=== PATIENT | female | born 1960 | race Caucasian/White ===

== ENCOUNTER 2023-03-29 01:25 | Emergency (ER) | payer MEDICAID ==
[~2023-03-29] VITALS: Ht 160 cm; Wt 68.2 kg
[~2023-03-29 01:25] MED LIST: DIPH25CA83 PO; LACTC PO
[2023-03-29] MEDS ORDERED: ondansetron 4mg rapidly disintigrating tab PO ONE (01:50)
[2023-03-29] MEDS ORDERED: acetaminophen 325mg tablet PO ONE (02:00)
[2023-03-29 03:23] VITALS: BP 117/85
== END 2023-03-29 03:25 | disposition home or self-care (01) ==
LOC: ER 01:26
DX: S00.01XA Abrasion of scalp, initial encounter (principal); Z88.1 Allergy status to other antibiotic agents; Z88.2 Allergy status to sulfonamides; Z91.09 Other allergy status, other than to drugs and biological substances; W06.XXXA Fall from bed, initial encounter; Y93.89 Activity, other specified; Y92.89 Other specified places as the place of occurrence of the external cause; Y99.8 Other external cause status
CPT/HCPCS: 70450; 72125; 99284

== ENCOUNTER 2023-09-07 17:19 | Emergency (ER) | payer MEDICAID ==
[~2023-09-07] VITALS: Ht 160 cm; Wt 68.2 kg
[2023-09-07 17:42] VITALS: TEMP 97.7
[2023-09-07 20:05] VITALS: BP 155/77; PULSE 89; RESP 12; O2SAT 97
--- NOTE | 2023-09-07 20:55 | NUR ---
NOT IN LOBY CALL #2
--- NOTE | 2023-09-07 21:08 | NUR ---
NOT IN LOBBY CALL #3
== END 2023-09-07 21:28 | disposition left against medical advice (07) ==
LOC: ER 17:20
DX: M25.571 Pain in right ankle and joints of right foot (principal); Z53.21 Procedure and treatment not carried out due to patient leaving prior to being seen by health care provider
CPT/HCPCS: 99281

== ENCOUNTER 2023-09-28 06:03 | Emergency (ER) | payer MEDICAID ==
[~2023-09-28] VITALS: Ht 160 cm; Wt 72.2 kg
[2023-09-28 06:06] VITALS: BP 137/71; PULSE 94; TEMP 98.6; O2SAT 100
[2023-09-28 06:52] VITALS: RESP 16
[2023-09-28] MEDS ORDERED: sulfamethoxazole/trimethoprim DS (800/160mg) tablet PO ONE (08:25)
[2023-09-28] MEDS ORDERED: ibuprofen 200mg tablet PO ONE (08:25)
[2023-09-28] MEDS ORDERED: clindamycin 150mg capsule PO ONE (08:25)
[2023-09-28] MEDS ORDERED: SULF1TAB49 PO (09:06)
[2023-09-28] MEDS ORDERED: IBUP-1984 PO (09:06)
[2023-09-28] MEDS ORDERED: CLIN300C3 PO (09:06)
--- NOTE | 2023-09-28 09:29 | NUR ---
oral meds given per dr amanda floating [id number]
== END 2023-09-28 09:30 | disposition home or self-care (01) ==
LOC: ER 06:04
DX: L03.115 Cellulitis of right lower limb (principal); Z88.1 Allergy status to other antibiotic agents; Z91.09 Other allergy status, other than to drugs and biological substances; Z79.2 Long term (current) use of antibiotics; Z79.1 Long term (current) use of non-steroidal anti-inflammatories (NSAID); Z79.899 Other long term (current) drug therapy
CPT/HCPCS: 73610; 99284

== ENCOUNTER 2024-01-08 15:59 | Emergency (ER) | payer MEDICAID ==
[~2024-01-08] VITALS: Ht 160 cm; Wt 69.0 kg
[2024-01-08 16:09] VITALS: BP 113/66; PULSE 89; RESP 16; TEMP 98.6; O2SAT 98
== END 2024-01-08 18:54 | disposition left against medical advice (07) ==
LOC: ER 16:00
DX: M79.672 Pain in left foot (principal); Z53.21 Procedure and treatment not carried out due to patient leaving prior to being seen by health care provider
CPT/HCPCS: 99281

== ENCOUNTER 2025-04-02 18:02 | Emergency (ER) | payer MEDICARE, MEDICAID ==
[~2025-04-02] VITALS: Ht 160 cm; Wt 63.2 kg
[2025-04-02 18:07] VITALS: BP 134/80; PULSE 100; RESP 18; TEMP 97.9; O2SAT 99
[2025-04-02 18:41] LABS: BASOPHILS % (AUTO) 0.8 % (0-1); EOSINOPHILS # (AUTO) 0.1 X10'3 (0-0.9); EOSINOPHILS % (AUTO) 1.1 % (0-6); HEMOGLOBIN 11.9 g/dl (12.0-16.0); LYMPHOCYTES # (AUTO) 1.8 X10'3 (1.1-4.8); LYMPHOCYTES % (AUTO) 30.1 % (21-51); MEAN CORPUSCULAR HEMOGLOBIN 31.6 PG (27.0-31.0); MEAN CORPUSCULAR HGB CONC 33.9 g/dL (33.0-36.5); MEAN PLATELET VOLUME 7.7 FL (7.4-10.4); MONOCYTES # (AUTO) 0.7 X10'3 (0-0.9); MONOCYTES % (AUTO) 11.4 % (2-12); NEUTROPHILS # (AUTO) 3.4 X10'3 (1.8-7.7); NEUTROPHILS % (AUTO) 56.6 % (42-75); PLATELET COUNT 275 X10'3 (140-440); RED BLOOD COUNT 3.76 X10'6 (4.20-5.60); RED CELL DISTRIBUTION WIDTH 14.2 % (11.5-14.5)
[2025-04-02 19:35] LABS: ALBUMIN 3.9 G/DL (3.4-5.0); ANION GAP 7 (8-16); BLOOD UREA NITROGEN 25 MG/DL (7-18); BUN/CREATININE RATIO 18.5 (10.0-20.0); CALCIUM 9.2 MG/DL (8.5-10.1); CHLORIDE 104 MMOL/L (99-107); CREATININE 1.35 MG/DL (0.40-0.90); GLUCOSE 127 MG/DL (70-104); POTASSIUM 4.4 MMOL/L (3.5-5.1); SODIUM 138 MMOL/L (135-145); TOTAL CARBON DIOXIDE 27.3 MMOL/L (24-32); eCRCL 34 ML/MIN; eGFR 39 ML/MIN
[2025-04-03] MEDS ORDERED: SULF1TAB45 PO (02:56)
== END 2025-04-03 01:00 | disposition left against medical advice (07) ==
LOC: ER 18:03
DX: R60.0 Localized edema (principal); Z88.8 Allergy status to other drugs, medicaments and biological substances; Z53.21 Procedure and treatment not carried out due to patient leaving prior to being seen by health care provider
CPT/HCPCS: 36415; 80048; 84145; 85025

== ENCOUNTER 2025-04-03 01:17 | Emergency (ER) | payer MEDICARE, MEDICAID ==
[~2025-04-03] VITALS: Ht 157.5 cm; Wt 56.9 kg
--- NOTE | 2025-04-03 02:27 | Physician Documentation ---
History of Present Illness ~ Chief Complaint: Leg Pain Stated Complaint: LEG SWELLING Time Seen by MD: 02:00 Primary Medical Doctor: [facility] 64 year old female is over one month s/p varicose vein surgery of LLE and has experienced continued LLE swelling and pain after the procedure. She denies fevers, N/V/D. Tetanus witin 5 years: No Medication Reconciliation Allergies: Coded Allergies: Bacitracin Zinc (Verified Allergy, Unknown, 09/07/23) Soap (Verified Allergy, Unknown, 09/07/23) gramicidin D (Verified Allergy, Unknown, 09/07/23) neomycin sulfate (Verified Allergy, Unknown, 09/07/23) polymyxin B sulfate (Verified Allergy, Unknown, 09/07/23) povidone-iodine (Verified Allergy, Unknown, 09/07/23) Scheduled Diphenhydramine Hcl (Benadryl), 2 CAP PO HS Lactobacillus Acidophilus (ACIDOPHILUS capsule), 1 CAP PO BID Past Medical History Past Medical History: Headache, Bronchitis, Pneumonia Past Surgical History: tonsillectomy Patient History: (CAD) Coronary arteriosclerosis MOTHER Alcohol Use: Rarely Drug Use: heroin Lives with: Family Lives In: Home Occupation: employed Review of Systems All Other Systems at this time: Reviewed and Negative Physical Exam Vital Signs: RN Vital Signs have been reviewed: Yes, Temperature: 98.2, Source: Oral, Heart Rate: 85, Respiratory Rate: 16, BP: 141/81, Pulse Oximetry: 100, Weight: 56.900 Oxygen Flow Rate: 0 Physical Exam HEENT: PERRL, moist oral mucosa, EOMI Pulmonary: No respiratory distress MSK: no deformity; LLE with 1+ pitting edema to knee, dusky appearance of skin to [place] Skin: w/d/i, no rash Neuro: alert, nonfocal Psych: normal affect Progress Results/Orders Results/Orders Orders - COSMO STEVEN MD Vl Venous (04/03/25 02:27) Vital Signs 04/03/25 04/03/25 04/03/25 01:23 02:22 02:23 Temp 98.2 98.2 Pulse 90 85 Resp 16 16 16 B/P (MAP) 145/85 141/81 (101) Pulse Ox 98 100 O2 Flow Rate 0 0 Medical Decision Making Findings 64 year old female with cellulitis vs. chronic venous stasis dermatitis vs. DVT LLE. Labs unremarkable, will provide ABx however I have explained that I believe this to be chronic stasis dermatitis. Patient refused US for DVT. Departure Disposition: HOME / SELF CARE / HOMELESS Impression: Primary Impression: Stasis dermatitis of both legs Condition: Stable Discharge Instructions: Stasis Dermatitis Referrals: NO PRIMARY CARE PROVIDER (PCP) Prescriptions Sulfamethoxazole/Trimethoprim (Septra Ds Tab) 800 Mg/160 Mg Tablet 1 TAB PO Q12H for 10 Days, #20 TAB Prov: COSMO STEVEN MD 04/03/25 Education Educated: Patient Educated regarding: diagnosis, treatment, prognosis, need for follow up Signature Scribe Signature: . Attestation: . COSMO STEVEN MD April 03, 2025 02:27
[2025-04-03] MEDS ORDERED: SULF1TAB45 PO (02:56)
[2025-04-03] MEDS: sulfamethoxazole/trimethoprim DS (800/160mg) tablet PO ONE (03:29)
[2025-04-03 03:43] VITALS: BP 128/55; PULSE 66; RESP 12; TEMP 98.2; O2SAT 100
== END 2025-04-03 03:55 | disposition home or self-care (01) ==
LOC: ER 01:18
DX: I87.2 Venous insufficiency (chronic) (peripheral) (principal); I25.10 Atherosclerotic heart disease of native coronary artery without angina pectoris; Z88.8 Allergy status to other drugs, medicaments and biological substances; Z90.89 Acquired absence of other organs; Z91.041 Radiographic dye allergy status
CPT/HCPCS: 99283

== ENCOUNTER 2025-06-06 06:14 | Emergency (ER) | payer MEDICARE, MEDICAID ==
[~2025-06-06] VITALS: Ht 157.5 cm; Wt 64.3 kg
[2025-06-06 06:29] VITALS: BP 131/72; PULSE 85; TEMP 97; O2SAT 98
[2025-06-06] MEDS: morphine 4 MG/ML inj SYRINge IV ONE (07:27)
[2025-06-06] MEDS: ceFAZolin/D5W- 1GM premix 50 ML IV STA (07:27)
--- NOTE | 2025-06-06 07:35 | Physician Documentation ---
History of Present Illness ~ Chief Complaint: Leg Pain Stated Complaint: DERMATITIS Time Seen by MD: 06:57 Primary Medical Doctor: [facility] Source: patient Mode of Arrival: POV Exam Limitations: no limitations HPI Chief Complaint: Left leg pain and ulcer Caveat: None Independent Historians: None History of Present Illness: Patient is a 64-year-old woman who comes in complaining of severe left leg pain that has gotten progressively worse over one week. Currently right now the pain is 6/10 but has been as severe as 9/10. The pain waxes and wanes. Patient has venous stasis and an ulcer over the medial distal left leg. This all began one week ago. Patient had recent surgery on the left lower extremity by Dr. Zelaya at [facility] for her varicose veins one month ago. Patient denies any fever. Review of systems: All systems were reviewed and are negative except for what is indicated in the history of present illness. Past Medical History: Chronic venous stasis Past Surgical History: Noncontributory Social History: Denies tobacco use, denies alcohol or drug use, history of heroin use Medications: Reviewed as documented Nursing Notes Allergies: Reviewed as documented in Nursing Notes Tetanus witin 5 years: No Medication Reconciliation Allergies: Coded Allergies: Bacitracin Zinc (Verified Allergy, Unknown, 06/06/25) Soap (Verified Allergy, Unknown, 06/06/25) gramicidin D (Verified Allergy, Unknown, 06/06/25) neomycin sulfate (Verified Allergy, Unknown, 06/06/25) polymyxin B sulfate (Verified Allergy, Unknown, 06/06/25) povidone-iodine (Verified Allergy, Unknown, 06/06/25) Scheduled Cephalexin*Monohydrate* (Keflex*), 1 CAP PO Q6H Diphenhydramine Hcl (Benadryl), 2 CAP PO HS Lactobacillus Acidophilus (ACIDOPHILUS capsule), 1 CAP PO BID Scheduled PRN Hydrocodone Bit/Acetaminophen (Hydrocodone-Apap 10-325 Tablet), 1 TAB PO TID PRN PRN for pain Past Medical History Past Medical History: Headache, Bronchitis, Pneumonia Past Surgical History: tonsillectomy Patient History: (CAD) Coronary arteriosclerosis MOTHER Alcohol Use: Rarely Drug Use: heroin Lives with: Family Lives In: Home Occupation: employed Review of Systems All Other Systems at this time: Reviewed and Negative ROS Patient denies any other acute symptoms other than above. All other systems are negative Physical Exam Vital Signs: RN Vital Signs have been reviewed: Yes, Temperature: 97.0, Source: Temporal, Heart Rate: 85, BP: 131/72, Pulse Oximetry: 98, Weight: 64.350 Pulse Oximetry Reflects: adequate oxygenation Physical Exam General Appearance: Mild distress HEENT: Normal OP, moist oral mucosa, PERRL, EOMI Neck: supple, normal ROM, trachea midline Pulmonary: No respiratory distress, CTA, BS equal Cardiac: RRR, no murmur, rub or gallop, GI: nondistended, soft, nontender, normal bowel sounds, no guarding, no rebound Extremities: Large superficial venous stasis ulcer over the distal medial left leg that is weeping/wet. Patient has some erythema of the leg proximally. Skin: intact, dry, warm, no rashes, see extremity exam above Neuro: AAOx3, speech is clear, no focal motor weakness Psych: normal affect, good eye contact, no apparent hallucination, normal speech Progress Results/Orders Results/Orders Orders - YAZMIN POPE MD Saline Lock (06/06/25 07:00) Wound Care Orders (06/06/25 07:52) Cult Urine + [address] (06/06/25 07:56) Completed Orders - YAZMIN POPE MD Cbc/Diff (06/06/25 07:00) MG (06/06/25 07:00) Procalcitonin (06/06/25 07:00) Cefazolin/D5w- 1gm Premix (Ancef 1 Gm-D5 (06/06/25 07:00) Morphine 4mg/Ml Inj. (Morphine Inj.) (06/06/25 07:05) Cephalexin Capsule (Keflex Capsule) (06/06/25 07:55) Ua W/Microscopic, Cult If Ind (06/06/25 07:30) Vital Signs 06/06/25 06:29 Temp 97.0 Pulse 85 B/P (MAP) 131/72 Pulse Ox 98 Laboratory Tests Test 06/06/25 07:17 06/06/25 07:30 White Blood Count 6.0 Red Blood Count 3.50 L Hemoglobin 11.1 L Hematocrit 32.2 L Mean Corpuscular Volume 92.2 Mean Corpuscular Hemoglobin 31.6 H Mean Corpuscular Hemoglobin Concent 34.3 Red Cell Distribution Width 14.2 Platelet Count 285 Mean Platelet Volume 7.8 Neutrophils (%) (Auto) 53.6 Lymphocytes (%) (Auto) 31.6 Monocytes (%) (Auto) 13.1 H Eosinophils (%) (Auto) 1.0 Basophils (%) (Auto) 0.7 Neutrophils # (Auto) 3.2 Lymphocytes # (Auto) 1.9 Monocytes # (Auto) 0.8 Eosinophils # (Auto) 0.1 Basophils # (Auto) 0.0 CBC Comment Magnesium Level 2.1 Procalcitonin < 0.05 Urine Specimen Description Cln catch midstream Urine Color Yellow Urine Clarity Clear Urine pH 6.0 Urine Specific [place] 1.020 Urine Protein Negative Urine Glucose (UA) Negative Urine Ketones Negative Urine Occult Blood Moderate H Urine Nitrite Negative Urine Bilirubin Negative Urine Urobilinogen 0.2 Urine Leukocyte Esterase Trace H Urine RBC 10-20 Urine WBC 5-10 H Urine WBC Clumps Few Urine Squamous Epithelial Cells Moderate Urine Bacteria 1+ Urine Hyaline Casts 0-3 Urine Mucus None seen Urine Culture Indicated Indicated Volume Urine Centrifuged 10 ml Urine Comment Microbiology Date/Time Source Procedure Growth Status 06/06/25 07:56 Urine Clean Catch Midstream Urine Culture - Preliminary Culture received. Resulted Medical Decision Making Findings Differential diagnosis includes but is not limited to: Venous stasis, venous stasis ulcer, cellulitis, infected venous stasis ulcer Laboratory data independent interpretation: CBC: Unremarkable, moderate anemia with a hemoglobin of 11.1 CMP: Procalcitonin less than 0.05, magnesium 2.1 Urinalysis: Unremarkable, contaminated specimen Emergency department course/medical decision-making: Patient appears to have a venous stasis ulcer that is likely infected. IV Ancef and IV morphine ordered. I discussed with the patient that she will likely need admission. Patient is now refusing IV and just wants oral Keflex and to be discharged. I tried to discourage her from leaving and I recommended admission. She still wishes to go home. Patient will be given a prescription for Keflex and referred to the [facility]. Patient is instructed to return if symptoms worsen. Departure Time of Disposition: 07:54 Disposition: 01 HOME / SELF CARE / HOMELESS Impression: Primary Impression: Infected venous stasis, left leg Discharge Instructions: Chronic Venous Insufficiency Additional Instructions: CHANGE THE DRESSING TWICE A DAY. FOLLOW UP WITH WOUND CARE CLINIC. GIVE THEM A CALL TODAY. RETURN TO THE ER IF YOUR SYMPTOMS WORSEN. Referrals: [facility], [facility] Prescriptions Hydrocodone Bit/Acetaminophen (Hydrocodone-Apap 10-325 Tablet) 10mg/325mg Tablet 1 TAB PO TID PRN PRN for pain, #10 TAB Prov: YAZMIN POPE MD 06/06/25 Cephalexin*Monohydrate* (Keflex*) 500 Mg Capsule 1 CAP PO Q6H for 10 Days, #40 CAP Prov: YAZMIN POPE MD 06/06/25 Education Educated: Patient Educated regarding: diagnosis, treatment, need for follow up Signature Scribe Signature: No scribe Attestation: No scribe YAZMIN POPE MD Jun 06, 2025 07:35
[2025-06-06 07:45] LABS: MEAN PLATELET VOLUME 7.8 FL (7.4-10.4); RED CELL DISTRIBUTION WIDTH 14.2 % (11.5-14.5)
[2025-06-06 07:49] LABS: LEUKOCYTE ESTERASE ,URINE TRACE (Neg); NITRITES, URINE NEGATIVE (Neg); OCCULT BLOOD,URINE MODERATE (Neg)
[2025-06-06 07:53] LABS: UA COLLECTION TYPE CLN CATCH MIDSTREAM
[2025-06-06 07:55] LABS: HYALINE CASTS 0-3 /LPF (NEGATIVE); MUCUS STRANDS NONE SEEN /LPF (Neg); SQUAMOUS EPITHELIAL CELL,UR MODERATE /LPF (FEW); WBC CLUMPS,URINE FEW /HPF (NEGATIVE)
[2025-06-06] MEDS ORDERED: HYDR-3973 PO (07:57)
[2025-06-06] MEDS ORDERED: CEPH-585 PO (07:57)
== END 2025-06-06 08:30 | disposition home or self-care (01) ==
LOC: ER 06:15
DX: I83.229 Varicose veins of left lower extremity with both ulcer of unspecified site and inflammation (principal); L97.929 Non-pressure chronic ulcer of unspecified part of left lower leg with unspecified severity; I25.10 Atherosclerotic heart disease of native coronary artery without angina pectoris; Z88.8 Allergy status to other drugs, medicaments and biological substances; Z90.89 Acquired absence of other organs; Z79.899 Other long term (current) drug therapy
CPT/HCPCS: 36415; 81001; 83735; 84145; 85025; 87088; 99283; A6223; J7030

== ENCOUNTER 2025-06-25 02:23 | Emergency (ER) | payer MEDICARE, MEDICAID ==
[~2025-06-25] VITALS: Ht 160 cm; Wt 64.2 kg
[~2025-06-25 02:23] MED LIST changes: +HYDR-3973 PO
[2025-06-25 02:27] VITALS: BP 123/68; PULSE 90; RESP 18; TEMP 98; O2SAT 100
--- NOTE | 2025-06-25 03:07 | Physician Documentation ---
History of Present Illness ~ Chief Complaint: Back Pain Stated Complaint: BACK PAIN Time Seen by MD: 02:53 Primary Medical Doctor: [facility] Medication Reconciliation Allergies: Coded Allergies: Bacitracin Zinc (Verified Allergy, Unknown, 06/06/25) Soap (Verified Allergy, Unknown, 06/06/25) gramicidin D (Verified Allergy, Unknown, 06/06/25) neomycin sulfate (Verified Allergy, Unknown, 06/06/25) polymyxin B sulfate (Verified Allergy, Unknown, 06/06/25) povidone-iodine (Verified Allergy, Unknown, 06/06/25) Scheduled Diphenhydramine Hcl (Benadryl), 2 CAP PO HS Lactobacillus Acidophilus (ACIDOPHILUS capsule), 1 CAP PO BID Scheduled PRN Hydrocodone Bit/Acetaminophen (Hydrocodone-Apap 10-325 Tablet), 1 TAB PO TID PRN PRN for pain Past Medical History Past Medical History: Headache, Bronchitis, Pneumonia Past Surgical History: tonsillectomy Patient History: (CAD) Coronary arteriosclerosis MOTHER Alcohol Use: Rarely Drug Use: heroin Lives with: Family Lives In: Home Occupation: employed Physical Exam Physical Exam Vital Signs: Temperature: 98.0, Source: Temporal, Heart Rate: 90, Respiratory Rate: 18, BP: 123/68, Pulse Oximetry: 100, Weight: 64.200 Progress Results/Orders Results/Orders Vital Signs 06/25/25 02:27 Temp 98.0 Pulse 90 Resp 18 B/P (MAP) 123/68 Pulse Ox 100 Departure Referrals: NO PRIMARY CARE PROVIDER (PCP) YAZMIN POPE MD Jun 25, 2025 03:07
== END 2025-06-25 03:35 | disposition left against medical advice (07) ==
LOC: ER 02:23
DX: M54.9 Dorsalgia, unspecified (principal); F11.90 Opioid use, unspecified, uncomplicated; I25.10 Atherosclerotic heart disease of native coronary artery without angina pectoris; Z88.8 Allergy status to other drugs, medicaments and biological substances; Z91.048 Other nonmedicinal substance allergy status; Z79.899 Other long term (current) drug therapy; Z53.21 Procedure and treatment not carried out due to patient leaving prior to being seen by health care provider